=== PATIENT | male | born 1940 | race Caucasian/White ===

== ENCOUNTER 2017-05-10 12:35 | Emergency (ER) | payer SELFPAY ==
[~2017-05-10] VITALS: Ht 185.4 cm; Wt 86.8 kg
[2017-05-10 12:53] VITALS: Ht 185.4 cm; Wt 86.8 kg
[2017-05-10] MEDS ORDERED: VITA1TAB4 PO (13:29)
[2017-05-10] MEDS ORDERED: CHOL1000 PO (13:29)
[2017-05-10] MEDS ORDERED: CRS/10 PO (13:29)
[2017-05-10] MEDS ORDERED: ASPI81TA28 PO (13:29)
[2017-05-10] MEDS ORDERED: ASCA500 PO (13:29)
[2017-05-10] MEDS ORDERED: NIAC500T11 PO (13:31)
--- NOTE | 2017-05-10 14:28 | DIAGNOSTIC IMAGING REPORT ---
R KNEE 3 VIEWS CLINICAL HISTORY: Right knee pain following fall. COMPARISON: None FINDINGS: Note is made of a vertical acute nondisplaced fracture through the lateral aspect of the patella. No additional fractures are identified. There is no definite joint effusion. There is mild pre-/infrapatellar soft tissue swelling. IMPRESSION: Acute vertical nondisplaced lateral patellar fracture. Electronically signed by: Boone Garland M.D. 05/10/2017 2:26 PM Dictated Date/Time: 05/10/2017 2:25 PM
--- NOTE | 2017-05-10 14:29 | DIAGNOSTIC IMAGING REPORT ---
R HAND MIN 3 VIEWS ROUTINE CLINICAL HISTORY: Fall. COMPARISON: None FINDINGS: Alignment of the right hand is anatomic. There is no acute fracture. 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 IMPRESSION: No acute fracture or dislocation of the right hand. Electronically signed by: Boone Garland M.D. 05/10/2017 2:28 PM Dictated Date/Time: 05/10/2017 2:26 PM
--- NOTE | 2017-05-10 14:31 | DIAGNOSTIC IMAGING REPORT ---
L HAND MIN 3 VIEWS ROUTINE CLINICAL HISTORY: Left hand pain following fall. COMPARISON: None FINDINGS: No acute fracture is identified. A 1 cm lucent lesion with thin sclerotic rim within the proximal phalanx of the left thumb is likely benign. A 1.1 cm bony excrescence arising from the distal shaft of the proximal phalanx of the left second finger is also likely benign. IMPRESSION: No acute fracture or dislocation of the left hand. Electronically signed by: Boone Garland M.D. 05/10/2017 2:30 PM Dictated Date/Time: 05/10/2017 2:28 PM
[2017-05-10] MEDS ORDERED: OXYC1TAB3 PO (14:45)
[2017-05-10 15:20] VITALS: BP 141/91; PULSE 91; TEMP 36.8; O2SAT 96
--- NOTE | 2017-05-11 16:35 | EMERGENCY ROOM VISIT NOTE ---
ED Visit Note First contact with patient: 12:57 Chief Complaint: I fell and hurt my right knee. History of Present Illness: Mr. White is a 76-year-old white male who ambulates into the ED complaining of right knee pain. Patient reports he is visiting this area from [place]. He is staying with friends. He reports he was crossing the street and when he stepped up onto the curb he struck the curb with his foot and fell onto his hands and right knee. He reports before the fall he was not experiencing any lightheadedness or dizziness, the time of the fall he did not strike his head or have a loss of consciousness and since the fall he has not been having any signs of head injury. He does report immediately after the injury he was able to stand up and ambulate. Currently patient is complaining of anterior right knee pain and bilateral or hand pain. Currently he describes his knee pain as a sharp sensation. Pain is located over the patella. He rates his discomfort 1/10. The pain is nonradiating. The pain worsens with palpation of the patella, ambulation and flexion of the knee greater then 70. He has not identified any alleviating factors related to the pain. He has not taken any medication for pain prior to arrival at the hospital. Associated with his pain he reports he has having bilateral pain in the palms of the hands. He describes this as a throbbing sensation. He rates his discomfort 1/10. His pain is nonradiating. His pain worsens with palpation. He has not identified any alleviating factors related to the pain. He denies any associated symptoms. Patient denies neck pain, back pain, chest pain, shortness of breath, abdominal pain, nausea, vomiting, extremity weakness/numbness/tingling, headache, dizziness, lightheadedness, abnormal neurological symptoms. Review of Systems: As noted above in history of present illness. All body systems were reviewed and found to be negative as noted above. Past Medical History: Pneumonia, status post tonsillectomy and appendectomy. Current Medications: Medications Dose Route/Sig Max Daily Dose Days Date Category Niacin 500 Mg Tab 500 Mg PO DAILY 05/10/17 Reported Vitamin D3 (Cholecalciferol) 1,000 Unit Tab 3,000 Inter.unit PO DAILY 90 05/10/17 Reported Vitamin C (Ascorbic Acid) 500 Mg Tab 500 Mg PO DAILY 05/10/17 Reported Vitamin E 400 Unit Tab 400 Mg PO DAILY 05/10/17 Reported Aspirin Ec (Aspirin) 81 Mg Tab 81 Mg PO DAILY 05/10/17 Reported Crestor (Rosuvastatin Calcium) 10 Mg Tab 10 Mg PO QPM 05/10/17 Reported Allergies to Medications: Patient denies. Social History: Patient is currently employed; he feels safe in his home environment; he denies tobacco use and admits throughout all use. Physical Examination: Vital Signs: Date Time Temp Pulse Resp B/P (MAP) Pulse Ox O2 Delivery O2 Flow Rate FiO2 05/10/17 15:20 36.8 91 16 141/91 96 05/10/17 15:00 91 16 141/91 96 Room Air 05/10/17 12:53 36.8 97 16 149/94 96 Room Air GENERAL: 76-year-old male in mild distress due to pain, nontoxic-appearing, afebrile and hemodynamically stable. NEUROLOGICAL: Awake, alert and oriented to person, place and time. Answering questions appropriately and following commands. Good short-term and long-term recall. Cranial nerves II through XII grossly intact. Good hand eye coordination. No focal motor sensory deficits. SKIN: Warm, dry and pink. Right Knee: Superficial abrasions over the anterior patella. No active bleeding. HEENT: Atraumatic and normocephalic. No facial trauma. PERRLA. EOMI without nystagmus. Sclera white and conjunctiva pink. No drainage from naris. Airway is patent.. Speech normal. Trachea midline. No jugular venous distention. BACK: No tenderness over the bony spine. No CVA tenderness. THORAX: Lungs sounds are clear to auscultation and equal bilaterally with symmetrical chest wall. ABDOMEN: Flat, soft and nontender. Positive bowel sounds in all quadrants. No guarding, rigidity or organomegaly. UPPER EXTREMITIES: No gross bony deformity. No tenderness over the shoulders, upper arms, elbows, forearms, wrists and fingers. Patient does have contusion over the palmar surface. No open wounds. Throughout the upper extremities the skin was warm and pink and capillary refill is brisk. He was able to distinguish light sensations through all dermatomes. LOWER EXTREMITIES: No gross bony deformities. No shortening or malrotation. No tenderness over the hips, thighs, lower legs or ankle. Moderate tenderness over the anterior aspect of the right patella with moderate swelling. There is a superficial abrasion as previously noted with no active bleeding. Decreased range of motion of the right knee due to pain and swelling. With the knee stabilized patient does have full range of motion in plantar flexion and dorsiflexion of the ankle and flexion and extension of all toes. Lower extremities are warm and pink and capillary refill is brisk. He is able to distinguish light sensations through all dermatomes of the extremities. ED Course: Patient is assessed as noted above. Patient's medication list was reviewed. Patient was offered pain medication and refused and he was given ice bags for his hands and really. Right Knee X-Rays: Were reviewed by myself and read by the radiologist showing acute vertical nondisplaced lateral patellar fracture. Right Hand X-Rays: Were read by myself and the radiologist showing no acute fractures or dislocations. Left Hand X-Rays: Were read by myself and the radiologist and shows no acute fractures or dislocations. Patient's abrasions were cleansed with antibacterial soap and water and covered with a bacitracin dressing. Patient was placed in a knee immobilizer and instructed on her walker use. Patient's case was reviewed with Dr. Whitney; we agreed on diagnostic approach , treatment, disposition and plan. Patient was educated about today's findings and instructed on his treatment plan ; he verbalized understanding and agreement with this plan. Clinical Impression: Fall. Right patella fracture. Right knee abrasion. Bilateral hand contusions. Disposition: Patient discharged home in stable condition accompanied by his and other friends; prior to departure he was reassessed and subjectively reported his pain was slightly worse and rated his discomfort 3/10. Plan: Comfort measures were discussed with the patient including knee immobilizer and walker use, ice and alternating medications of ibuprofen, acetaminophen and OxyIR; he was given appropriate narcotic precautions. Wound care and signs of infection were discussed with the patient. Patient was encouraged to follow-up with asset protection specialist when he arrives back in [place] for definitive care and treatment. Patient was encouraged return ED for uncontrolled pain, uncontrolled swelling, leg or hand weakness/numbness/tingling, signs of infection or any new/ concerning symptoms.
== END 2017-05-10 15:20 | disposition home or self-care (01) ==
LOC: C.EDB 12:37 → C.EDD 15:20
DX: S82.001A Unspecified fracture of right patella, initial encounter for closed fracture (principal); S80.211A Abrasion, right knee, initial encounter; S60.221A Contusion of right hand, initial encounter; S60.222A Contusion of left hand, initial encounter; W01.0XXA Fall on same level from slipping, tripping and stumbling without subsequent striking against object, initial encounter